=== PATIENT | male | born 1990 | race Caucasian/White ===

== ENCOUNTER 2019-12-01 08:38 | Emergency (ER) | payer BC, OTHER ==
[~2019-12-01] VITALS: Ht 185.4 cm; Wt 86.2 kg
[2019-12-01] MEDS ORDERED: TDAP DIPH,PERTUSS,TET VAC/PF 0.5 ML DISP.SYRIN IM ONE ×2 (08:45→08:50)
[2019-12-01] MEDS ORDERED: ACETAMINOPHEN 325 MG TABLET PO ONE (08:45)
[2019-12-01] MEDS ORDERED: ACETAMINOPHEN 325 MG TABLET ONE (08:50)
[2019-12-01] MEDS ORDERED: BACITRACIN ZINC OINT 15 GM TUBE TOP STA (09:16)
[2019-12-01] MEDS ORDERED: IBUPROFEN 600 MG TABLET ONE (09:26)
[2019-12-01] MEDS ORDERED: IBUPROFEN 600 MG TABLET PO ONE (09:30)
--- NOTE | 2019-12-01 09:45 | NUR ---
Patient discharged to home in stable condition. Written and verbal after care instructions given. Patient verbalizes understanding of instructions. Stressed follow up with ortho specialist,and return to ER for worsening s/s.
[2019-12-01 09:49] VITALS: BP 101/63
== END 2019-12-01 09:50 | disposition home or self-care (01) ==
LOC: ER 08:39
PROC: 2W39X1Z Immobilization of Left Upper Extremity using Splint (ICD-10-PCS; principal; 2019-12-01)
DX: S42.022A Displaced fracture of shaft of left clavicle, initial encounter for closed fracture (principal); V18.0XXA Pedal cycle driver injured in noncollision transport accident in nontraffic accident, initial encounter; Y93.55 Activity, bike riding; Y92.410 Unspecified street and highway as the place of occurrence of the external cause; S50.312A Abrasion of left elbow, initial encounter
CPT/HCPCS: 73000; 73030; 90715; A4663